=== PATIENT | male | born 1970 | race Caucasian/White ===

== ENCOUNTER 2019-04-06 20:00 | Observation (INO) | payer OTHER ==
[~2019-04-06] VITALS: Ht 190.5 cm; Wt 133.8 kg
[~2019-04-06 20:00] MED LIST: AUGMENTIN 875-1 EACH PO; HYDROCODONE-AP1 EAC6 PO; MEDROLDOSEPACK PO; NEXIUM40 MG PO; PROAIR HFA8.5 GM; WELLBUTRIN SR150 MG PO; XANAX 0.25 MG0.25 MG PO
[2019-04-06 20:12] VITALS: BP 140/89
[2019-04-06] MEDS ORDERED: QVAR REDIHALE10.6 G1 INH (20:16)
[2019-04-06] MEDS ORDERED: FLONASE 0.05%50 MCG NASAL (20:17)
[2019-04-06] MEDS ORDERED: ZYRTEC10 M5 PO (20:17)
[2019-04-06] MEDS ORDERED: METFORMIN HCL500 MG PO (20:18)
[2019-04-06] MEDS ORDERED: NORVASC2.5 MG PO (20:19)
[2019-04-06] MEDS ORDERED: LIPITOR10 MG PO (20:20)
[2019-04-06 20:29] LABS: URINE BILIRUBIN NEGATIVE (Negative); URINE BLOOD 3+ (Negative); URINE CLARITY CLEAR; URINE COLOR YELLOW; URINE GLUCOSE-RANDOM NEGATIVE (Negative); URINE KETONES NEGATIVE (Negative); URINE LEUKOCYTES-REFLEX NEGATIVE (Negative); URINE NITRITE-REFLEX NEGATIVE (Negative); URINE PROTEIN TRACE (Negative); URINE SPECIFIC GRAVITY >= 1.030 (1.005-1.030); URINE UROBILINOGEN 0.2 E.U./dl (0.2-1.0)
[2019-04-06 20:37] LABS: MUCUS 0-3 Light strn/LPF (None Seen); SQUAMOUS 0-3 Few /LPF (0-3)
[2019-04-06 20:40] LABS: BACTERIA-REFLEX None Seen /HPF (None Seen); CASTS None Seen /LPF (None Seen); CRYSTALS None Seen /LPF (None Seen); URINE WBC-REFLEX None Seen /HPF (0-5)
[2019-04-07 02:00] VITALS: BP 130/70
--- NOTE | 2019-04-07 07:13 | NUR ---
THIS NURSE RECEIVED REPORT FROM CHAUNCEY BOND. THIS NURSE TO ASSUME PT CARE AT THIS TIME.
--- NOTE | 2019-04-07 09:05 | NUR ---
HOSPITALIST AT BEDSIDE TALKING WITH PT. PT MADE AWARE OF NEED FOR SURGERY. STATES UNDERSTANDING. PT NOTIFIED THAT SURGERY TO BE AT 1530 TODAY, TO REMAIN NPO UNTIL THEN. PT STATED UNDERSTANDING.
--- NOTE | 2019-04-07 09:07 | NUR ---
RECIEVED PHONE CALL FROM [facility] WITH REPORT THAT PT HAS BEEN PLACED ON SCHEDULE TENATIVELY AT 1530 TODAY, 04/07/19, FOR STONE REMOVAL. STATES KUB HAS BEEN ORDERED AND PT NEEDS TO REMAIN NPO.
--- NOTE | 2019-04-07 12:42 | EKG ---
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 04/07/19 1241 14 14 Colin Castellanos MD, [facility] /EPI
[2019-04-07 13:27] LABS: ABSOLUTE BASOPHILS 0.1 thou/uL (0.0-0.2); ABSOLUTE EOSINOPHILS 0.3 thou/uL (0.0-0.7); ABSOLUTE LYMPHOCYTES 2.6 thou/uL (0.8-5.3); ABSOLUTE MONOCYTES 0.6 thou/uL (0.0-1.2); BASOPHILS 0.8 %; EOSINOPHILS 2.5 %; HEMATOCRIT 45.4 % (42.0-52.0); HEMOGLOBIN 15.5 gm/dL (14.0-18.0); LYMPHOCYTES 24.4 %; MCHC 34.1 g/dL (28.0-37.0); MCV 87.8 fL (80.0-100.0); MONOCYTES 6.1 %; MPV 8.3 fl. (7.2-11.1); NUCLEATED RBCS 0 /100WBC; PLATELET COUNT* 233 thou/uL (150-400); POLYS 66.2 %; RBC 5.16 mil/uL (4.50-6.00); RDW-CV 14.9 % (10.5-14.5); WBC 10.6 thou/uL (4.0-11.0)
[2019-04-07 13:35] LABS: CALCIUM 8.5 mg/dL (8.5-10.1); CREATININE 0.6 mg/dL (0.6-1.3); POTASSIUM 3.9 mmol/L (3.5-5.1)
[2019-04-07 13:46] VITALS: BP 144/95
[2019-04-07] MEDS ORDERED: NORCO 5-325 TA1 EAC1 PO (17:42)
[2019-04-07] MEDS ORDERED: FLOMAX0.4 MG PO (17:43)
[2019-04-07] MEDS ORDERED: LEVSIN0.125 MG PO (17:44)
[2019-04-07 17:48] VITALS: BP 144/95
--- NOTE | 2019-04-10 09:52 | OP ---
[address] [address] OPERATIVE REPORT Name: SHAREE COBOS Room: [address] IN M.R.#: [id number] Admission: 04/06/19 Attend Phys: Fallon Vásquez Discharge: 04/07/19 Date of : 66 Report #: [id number] THIS REPORT FOR: //name// CC: Fallon Mg DATE OF SERVICE: 04/07/2019 PREOPERATIVE DIAGNOSES: Left ureteral calculus and flank pain. POSTOPERATIVE DIAGNOSES: Left ureteral calculus and flank pain. PROCEDURES: Cystoscopy, left retrograde pyelogram, left ureteroscopy, laser lithotripsy, stone extraction, stent placement. SURGEON: Guy Aguirre MD ANESTHESIA: General. ESTIMATED BLOOD LOSS: None. DRAINS: A 6 x 28 left ureteral stent. SPECIMENS: Stone fragments. COMPLICATIONS: None. INDICATIONS: This is a 48-year-old male with a left distal ureteral calculus on CT scan and flank pain. Alternatives for management were discussed. He has decided to undergo cystoscopy with left retrograde pyelogram, left ureteroscopy, laser lithotripsy, stone extraction, stent placement. Risks and benefits of the procedure were discussed. Risks included, but are not limited to bleeding, infection, anesthesia, cardiopulmonary and vascular events, injuries to urethra, bladder, ureter, possible development of strictures, possible need for further stone procedures, stent discomfort. We also discussed the importance of timely followup regarding any stent left in place and the reasoning for that. The patient voices clear understanding of all this and wants to proceed. DESCRIPTION OF PROCEDURE: The patient was pretreated with IV Cipro. After induction of general anesthesia, he was positioned, prepped and draped in the lithotomy position. Timeout was performed. Cystourethroscopy was performed. The urethra and bladder were examined systematically. The anterior urethra was normal. There is mild bilateral lobe impingement in the prostatic urethra. There were no urethral or bladder tumors. Ureteral orifices were orthotopic. No blood is seen from either. There is a stone density corresponding to the location of the stone on CT and KUB on fluoroscopic [place] [address] OPERATIVE REPORT Name: PAPITOSHAREE Room: [address]#: [id number] Admission: 04/06/19 Attend Phys: Fallon Vásquez Discharge: 04/07/19 Date of : 66 Report #: [id number] A 5-Lithuanian ureteral catheter was used to perform a retrograde pyelogram revealing a filling defect in the distal ureter with some dilation proximally. Other filling defects were noted to be mobile on fluoroscopic monitoring consistent with air bubbles. Fluoroscopic guidance was used to advance a sensor wire into the left renal pelvis with good position confirmed. Scope was removed leaving the wire in place. Semirigid ureteroscope was advanced alongside the wire and into the distal ureter. This passed easily to the level of the stone. The stone was engaged with a 272 micron holmium laser fiber and laser lithotripsy was performed. There was edema in the location of the stone. The stone broke up nicely at 6.4 simon. Care was taken to avoid injury to the surrounding tissues and the wire. Fragments were extracted with a 0 tip basket. This process was continued until all remaining fragments are too small to entrap with basket and thus appeared passable. The scope was advanced a few centimeters proximally and no other stone fragments were noted. The scope was withdrawn with visual guidance and aside from the edema in the distal ureter, there were no distal ureteral abnormalities. The wire was noted coursing up the ureter. The ureteroscope was removed and the wire was loaded onto the cystoscope. It was used for passage of a 6 x 28 left ureteral stent with good position confirmed in the renal pelvis fluoroscopically and in the bladder visually. Fragments were retrieved and sent for stone analysis. The bladder was left partially filled and the scope was removed. Lidocaine jelly was given per urethra. The patient tolerated the procedure well and was taken to the recovery room in stable condition. Plan will be to obtain a repeat radiograph in 1-2 weeks and remove his stent if it does not show any significant residual fragments. <ELECTRONICALLY SIGNED> By: Guy Aguirre MD 04/10/19 0952 [id number] 1903Jomaría Aguirre MD /jhon
== END 2019-04-07 18:20 | disposition home or self-care (01) ==
LOC: M.ERS 20:00 → M.TBA-ER 22:33
PROVIDERS: Emergency Medicine; Nurse Practitioner Adult Health; ADMIT Family Medicine
DX: N13.2 Hydronephrosis with renal and ureteral calculous obstruction (principal); R31.29 Other microscopic hematuria; J45.909 Unspecified asthma, uncomplicated; F32.9 Major depressive disorder, single episode, unspecified; Z79.899 Other long term (current) drug therapy